=== PATIENT | male | born 1965 | race Caucasian/White ===

== ENCOUNTER → 2024-03-18 18:17 | Outpatient (REF) | payer BC, SELFPAY | LOC: MRI 3T 18:17 | PROVIDERS: ATTENDING PHYSICIAN Physician Assistant Medical; FAMILY PHYSICIAN Internal Medicine | DX: M48.062 Spinal stenosis, lumbar region with neurogenic claudication (principal); M41.50 Other secondary scoliosis, site unspecified; M54.16 Radiculopathy, lumbar region | CPT/HCPCS: 72158 ==

== ENCOUNTER 2025-07-09 17:32 | Emergency (ER) | payer BC, SELFPAY ==
[2025-07-09 17:38] VITALS: BP 150/79
[2025-07-09 17:57] LABS: Hematocrit 43.5 % (39.0-52.0); Hemoglobin 15.1 g/dL (13.0-18.0); Mean Corp Hgb Conc. 34.7 g/dL (33.0-37.0); Mean Corpuscular Volume 92.4 fL (80.0-94.0); Nucleated Red Blood Cells % 0 % (-); Platelet Count 177 10^3/uL (130-400); Red Cell Dist. Width 12.5 % (11.5-14.5)
[2025-07-09 18:19] LABS: ALT (SGPT) 27 U/L (0-50); AST (SGOT) 22 U/L (17-59); Albumin 3.9 g/dl (3.5-5.0); Alkaline Phosphatase 69 U/L (38-126); Blood Urea Nitrogen 15 mg/dl (9-20); Calcium 9.2 mg/dl (8.4-10.2); Carbon Dioxide 32 mmol/L (22-30); Chloride 98 mmol/L (98-107); Glucose 98 mg/dl (70-99); Lipase 70 U/L (23-300); Potassium 4.4 mmol/L (3.5-5.1); Sodium 134 mmol/L (135-145); Total Protein 6.9 g/dl (6.3-8.2); eGFR > 60.00
[2025-07-09 18:24] LABS: Urine Character Clear (Clear)
[2025-07-09 18:34] LABS: Urine Squamous Cell 0-2 /LPF (Few)
[2025-07-09 18:35] LABS: Urine Red Blood Cell 0-2 /HPF (0-2); Urine White Cell 0-2 /HPF (0-5)
--- NOTE | 2025-07-09 19:50 | ED.GENMED ---
History of Present Illness
<Howard Cornelius PA-C - Last Filed: 07/10/25 00:27>
General
Chief Complaint: Abdominal Pain
Source: patient
Time Seen by Provider: 07/09/25 19:34
History of Present Illness
History of Present Illness:
60-year-old male with past medical history of hypertension hyperlipidemia sent to the emergency department by his primary care provider for evaluation of lower abdominal pain that has been relatively constant since Saturday, located generally across
the lower abdomen but worse suprapubically accompanied with slightly decreased p.o. intake to solids but not liquids and slight nausea. Patient saw his primary care provider today who felt patient had rebound and guarding and wanted patient to
obtain CT scan. Currently declining anything for pain. No history of abdominal surgeries. Social history was noted for occasional beer. No other concerns.
Past History
<Howard Cornelius PA-C - Last Filed: 07/10/25 00:27>
Past History
ED Past Medical History: HTN and Hypercholesterolemia
ED Past Surgical History: Orthopedic
Social History
Tobacco: Non-smoker
Alcohol: None
Drug: None
Personal:
Living: with family
Review of Systems
<Howard Cornelius PA-C - Last Filed: 07/10/25 00:27>
Review of Systems
All Other Systems: ROS reviewed and negative except as documented in HPI and ROS
Phy Exam
<Howard Cornelius PA-C - Last Filed: 07/10/25 00:27>
Physical Exam
Physical Exam:
GENERAL: Alert , in no apparent distress
EYE: clear conjunctiva b/l
HEAD: NCAT
ENT: o/p clr, mmm.
CARDIAC: Regular rate and rhythm .
LUNGS: Clear breath sounds bilaterally, no acute respiratory distress, no wheezes/rales/rhonchi
ABDOMEN: Soft, generalized ttp across lower abd but worse in the RLQ. (+)rebound and guarding. (+)Mcburneys
NEUROLOGICAL: Alert and oriented
SKIN: Warm and dry, skin intact.
MUSCULOSKELETAL: well perfused.
PSYCH: Normal and appropriate interaction.
Scores
<Howard Cornelius PA-C - Last Filed: 07/10/25 00:27>
Heart Failure Risk
Heart Failure Risk Score: Not Applicable
Heart Score for Chest Pain Patients
STEMI patient?: Not applicable
Withdrawal Assessment of Alcohol
Withdrawal Assessment Completed?: Not applicable
Course
<Howard Cornelius PA-C - Last Filed: 07/10/25 00:27>
Orders/Labs/Results
Orders:
Orders
07/09/25 17:48
Complete Blood Count/With Diff Urgent
Comprehensive Metabolic Panel Urgent
Lipase Urgent
07/09/25 18:14
Urinalysis Reflex To Culture Urgent
Date Specimen was Collected: 07/09/25
Time Specimen was Collected: 17:44
Urine Microscopic Reflex Cult Urgent
07/09/25 19:35
CT Abd/pel W Iv And Oral Contr Urgent
Comment:
Reason For Exam: abdominal pain, WBC 15
Iohexol [Omnipaque] See Protocol PO NOW STA
07/09/25 23:11
Ciprofloxacin HCl [Cipro] 500 mg PO NOW STA
MetroNIDAZOLE [Flagyl] 500 mg PO NOW STA
Abnormal Lab Results
07/09/25 07/09/25
17:48 18:14
WBC 15.0 H 10^3/uL
(4.8-10.8)
MCH 32.1 H pg
(27.0-31.0)
Abs Immat Gran (auto) 0.1 H 10^3/uL
(0-0.05)
Absolute Neuts (auto) 11.0 H 10^3/uL
(1.4-6.5)
Absolute Monos (auto) 1.3 H 10^3/uL
(0.1-0.6)
Lymphocytes % 16.2 L %
(20.5-51.1)
Sodium 134 L mmol/L
(135-145)
Carbon Dioxide 32 H mmol/L
(22-30)
Urine Albumin (Reflex) 1+ A
(Neg - Trace)
07/09/25 17:48
07/09/25 17:48
Vital Signs
Initial and Last Documented VS:
Initial Vital Signs
Temp Pulse Resp BP Pulse Ox
99.0 F 89 18 150/79 98
07/09/25 17:38 07/09/25 17:38 07/09/25 17:38 07/09/25 17:38 07/09/25 17:38
Last Documented Vital Signs
Temp Pulse Resp BP Pulse Ox
99.0 F 89 18 140/85 98
07/09/25 17:38 07/09/25 20:05 07/09/25 20:05 07/09/25 20:05 07/09/25 20:05
<Luther Kirkland MD - Last Filed: 07/10/25 14:07>
Orders/Labs/Results
Orders:
Orders
07/09/25 17:48
Complete Blood Count/With Diff Urgent
Comprehensive Metabolic Panel Urgent
Lipase Urgent
07/09/25 18:14
Urinalysis Reflex To Culture Urgent
Date Specimen was Collected: 07/09/25
Time Specimen was Collected: 17:44
Urine Microscopic Reflex Cult Urgent
07/09/25 19:35
CT Abd/pel W Iv And Oral Contr Urgent
Comment:
Reason For Exam: abdominal pain, WBC 15
Iohexol [Omnipaque] See Protocol PO NOW STA
07/09/25 23:11
Ciprofloxacin HCl [Cipro] 500 mg PO NOW STA
MetroNIDAZOLE [Flagyl] 500 mg PO NOW STA
Abnormal Lab Results
07/09/25 07/09/25
17:48 18:14
WBC 15.0 H 10^3/uL
(4.8-10.8)
MCH 32.1 H pg
(27.0-31.0)
Abs Immat Gran (auto) 0.1 H 10^3/uL
(0-0.05)
Absolute Neuts (auto) 11.0 H 10^3/uL
(1.4-6.5)
Absolute Monos (auto) 1.3 H 10^3/uL
(0.1-0.6)
Lymphocytes % 16.2 L %
(20.5-51.1)
Sodium 134 L mmol/L
(135-145)
Carbon Dioxide 32 H mmol/L
(22-30)
Urine Albumin (Reflex) 1+ A
(Neg - Trace)
07/09/25 17:48
07/09/25 17:48
Vital Signs
Initial and Last Documented VS:
Initial Vital Signs
Temp Pulse Resp BP Pulse Ox
99.0 F 89 18 150/79 98
07/09/25 17:38 07/09/25 17:38 07/09/25 17:38 07/09/25 17:38 07/09/25 17:38
Last Documented Vital Signs
Temp Pulse Resp BP Pulse Ox
99.0 F 89 18 140/85 98
07/09/25 17:38 07/09/25 20:05 07/09/25 20:05 07/09/25 20:05 07/09/25 20:05
<Howard Cornelius PA-C - Last Filed: 07/10/25 00:27>
MDM/Problems Addressed
Differential Diagnosis Includes:
Appendicitis
Diverticulitis
Colitis
Pancreatitis
UTI/Cystitis
Obstruction
MDM/Problems Addressed:
60-year-old male presenting to the ER for evaluation of lower abdominal pain, primary care provider concern for potential surgical pathology given the rebound and guarding on his exam. Patient does appear comfortable at time of my exam but
certainly has considerable pain on palpation of the abdomen. He is declining anything for pain or nausea. Labs initiated in triage do show a leukocytosis of 15,000. CT scan ordered. Disposition pending.
<Howard Cornelius PA-C - Last Filed: 07/10/25 00:27>
*Pulse Oximetry
SaO2: 98
Oxygen Mode of Delivery: Room air
Patient hypoxic: no
*Critical Care Note
Total Time (30-74mins, 75-104mins- exclusive of procedures): Not Applicable
<Howard Cornelius PA-C - Last Filed: 07/10/25 00:27>
Patient Management
Discussion with other providers: PCP
Escalation/DeEscalation of care consider admission/obs:
Uncomplicated sigmoid diverticulitis found on CT scan. Discussed inpatient versus outpatient based treatment with patient who ultimately preferred to be discharged home. Given his penicillin allergy will treat with Cipro and Flagyl. I did notify
patient's primary care provider via [place] text who will follow-up with the patient. Patient aware of return precautions to the ER.
ED Attending Note
<Howard Cornelius PA-C - Last Filed: 07/10/25 00:27>
-
Portions of this chart may have been created with voice recognition software.� Occasional wrong word or��sound alike� substitutions may have occurred due to the inherent limitations of voice recognition software.
<Luther Kirkland MD - Last Filed: 07/10/25 14:07>
ED Attending Note
Patient seen and examined by attending physician: Yes
ED Attending Note:
Patient presents to ED secondary to a 4-day history of lower abdominal pain with decreased appetite. Patient was evaluated by PCP earlier today and referred to ED for an evaluation with concern for potential appendicitis. Abdominal pain described
as crampy/sharp, worse when standing up and moving, mildly relieved at rest when sitting or lying down. Denies fever or chills. Denies vomiting or diarrhea. Denies trauma. Denies recent illness. Denies recent change in medications or diet.
Denies sick contact. Denies previous history of similar pain.
Physical Exam
General: mild painful distress, not acutely ill. afebrile
Head: nc/at. eomi
Neck: supple. normal range of motion
Abdomen: normal bowel sounds. no distention. mild lower abd pain, R>L
Neuro: alert and oriented x 3. no focal neurological deficits
Skin: no rash
Psychiatric: well kept. interactive and cooperative
Extremities: no edema. no calf tenderness.
Blood work reviewed, noted for mild leukocytosis. CT abdomen pelvis pending.
CT abdomen pelvis report reviewed and discussed with patient. Pt will be discharged home on abx with recommendation to f/u with pcp for re-evaluation. Return precautions provided.
Discharge Plan
Departure
Patient Disposition: Home (Routine Discharge)
Date of Disposition: 07/09/25
Time of Disposition: 23:11
Patient with high blood pressure during this ER visit?: Yes
Discharge Problem:
Diverticulitis of sigmoid colon
Instructions: Diverticulitis (DC)
Prescriptions:
New
ciprofloxacin HCl [Cipro] 500 mg tablet
500 mg PO BID Qty: 19 0RF
metronidazole 500 mg tablet
500 mg PO BID 10 Days Qty: 19 0RF
No Action
rosuvastatin 5 mg Tablet
5 mg PO DAILY
losartan 10 mg/mL Suspension
20 mg PO DAILY
Referrals:
Anupama Fleming MD [Family Provider, Internal Medicine]
Interventions
Interventions:
*Risk Screen - Suicide Last Done: 07/09/25 17:38
*General Assessment Last Done: 07/09/25 17:38
*Neglect/Abuse Screening Last Done: 07/09/25 17:38
*ED- Fall Risk Assessment Last Done: 07/09/25 23:23
*ED COVID-19 Vaccine History Last Done: 07/09/25 17:38
*ED Influenza Vaccine History Last Done: 07/09/25 17:38
*Nursing Disposition Last Done: 07/09/25 23:23
XQ-Dtinvd-Xbefxylhef Assessment Last Done: 07/09/25 21:41
Discharge Date and Time
Print Language: MOHAWK
[2025-07-09] MEDS: OMNIPAQUE 50 ML PO (20:00)
[2025-07-09 20:05] VITALS: BP 140/85
[2025-07-09 20:06] VITALS: BMI 32.3
--- NOTE | 2025-07-09 21:45 | EDRN ---
Patient tolerated oral contrast well, knows he will go to CT soon, provided with a blanket and pillow, call noe in reach.
--- NOTE | 2025-07-09 23:06 | EDRN ---
SHAJI Ferraro in at bedside going over results and plan
[2025-07-09] MEDS: FLAGYL 500 MG PO (23:18)
[2025-07-09] MEDS: CIPRO 500 MG PO (23:18)
== END 2025-07-09 23:23 | disposition home or self-care (01) ==
LOC: EMR 17:32
PROVIDERS: Emergency Medicine; EMERGENCY PHYSICIAN Emergency Medicine; FAMILY PHYSICIAN Internal Medicine
DX: K57.32 Diverticulitis of large intestine without perforation or abscess without bleeding (principal); I10 Essential (primary) hypertension; E78.00 Pure hypercholesterolemia, unspecified; Z88.0 Allergy status to penicillin
CPT/HCPCS: 99284; 74177; 80053; 81003; 81015; 83690; 85025; Q9967